=== PATIENT | male | born 1965 | race Hispanic/Latino ===

== ENCOUNTER → 2025-02-24 | Outpatient (REF) | payer MEDICARE, OTHER ==
[~2025-02-24] MED LIST: AIMOVIG AU70 MG/1 ML IM; ALBUTEROL0.63 MG/3 NEB; AMLODIPINE BESY10 MG PO; ASPIRIN EC81 MG PO; ATORVASTATIN CA20 MG PO; BENEFIBER1 EAC1 PO; CIALIS5 MG PO; COLLAGEN 15001 EACH PO; CYMBALTA20 MG PO; DOCUSATE SODIU100 MG PO; FLUTICASONE PRO16 GM INH; IOPAMIDOL 370 MG/ML 100 ML INFUS..BTL INJ ONE; IPRAT-ALBUT 0.5-3 ML NEB; LINZESS145 MCG PO; METFORMIN HCL500 MG PO; METHOCARBAMOL750 MG PO; METOCLOPRAM5 MG/5 ML PO; METOPROLOL SUCC25 MG PO; NAPROXEN250 MG PO; NEURONTIN300 MG PO; ONDANSETRON ODT4 MG PO; POTASSIUM CHLO20 ME1 PO; PROBIOTIC & AC1 EACH PO; PROTONIX20 MG PO; TERBINAFINE HC250 MG PO; UBRELVY100 MG PO; VENTOLIN HFA18 GM INH; VESICARE5 MG PO; [UNRECOGNIZED DRUG - OTHER] PO; [UNRECOGNIZED DRUG - OTHER] PO
[2025-02-24 15:45] LABS: CREATININE, SERUM 0.99 mg/dL (0.72-1.25)
== END ==
LOC: CT 14:48
PROVIDERS: ATTEND Nurse Practitioner Family
DX: R10.9 Unspecified abdominal pain (principal)
CPT/HCPCS: 36415; 74177; 82565; 84520; Q9967

== ENCOUNTER → 2025-07-21 | Outpatient (REF) | payer MEDICARE, OTHER ==
[~2025-07-21] MED LIST changes: +SODIUM CHLORIDE 0.9% 100 ML ONE
[2025-07-21 09:24] LABS: EST GLOMERULAR FILTRATION RATE 98.0 ML/MIN (>=60)
== END ==
LOC: CT 08:19
PROVIDERS: ATTEND Internal Medicine Cardiovascular Disease
DX: I20.9 Angina pectoris, unspecified (principal)
CPT/HCPCS: 36415; 75574; 82565; 84520; J7050; Q9967